=== PATIENT | male | born 1960 | race Caucasian/White ===

== ENCOUNTER 2022-06-20 00:03 | Day surgery (SDC) | payer BC, SELFPAY ==
[2022-04-30 13:46] VITALS: BMI 24.5
[2022-06-04 14:48] VITALS: BMI 24.5
--- NOTE | 2022-06-19 14:08 | PM.HPGS ---
History of Present Illness History of Present Illness Consent: Risks, benefits, and alternatives have been discussed and questions answered. Patient agrees to proceed with procedure. Chief complaint: neoplasm screening Narrative: Suhas Zhou is a 61 year old male Referred for colon cancer screening. Review of Systems Review of Systems: All systems reviewed & are unremarkable except as noted in HPI and below PMFSH Past Medical History Medical History Coronary artery disease Essential hypertension Family history of coronary artery disease occurring prior to 55 years of age H/O: GI bleed Mixed hyperlipidemia Family History Family History Mother Family history of hypercholesterolemia Hypertension Family history of coronary artery disease Father Hypertension Family history of cardiovascular disease Acute myocardial infarction Family history of arthritis Family history of coronary artery disease Sibling Hypertension Social History Social History Smoking status: Never smoker Alcohol intake: current Alcohol use details: one time monthly Living arrangements: with family Spiritual care concerns: No Meds Home Medications and Allergies Home Medications Medication Instructions Recorded Confirmed Type atorvastatin 40 mg tablet 40 mg PO DAILY 12/20/21 06/04/22 History isosorbide mononitrate 30 mg 30 mg PO DAILY 12/20/21 06/04/22 History tablet,extended release 24 hr metoprolol succinate 25 mg 25 mg PO DAILY 12/20/21 06/04/22 History tablet,extended release 24 hr Allergies Allergy/AdvReac Type Severity Reaction Status Date / Time NSAIDS (Non-Steroidal Allergy Other Verified 06/20/22 06:26 Anti-Inflamma Exam Resp: Auscultation: clear to auscultation bilaterally Cardio: Rate: regular rate Rhythm: regular rhythm GI: GI Palp: Yes Soft to palpation and No Tenderness to palpation present (GI) Assessment and Plan Assessment and plan (1) Colon cancer screening: Code(s): Z12.11 - Encounter for screening for malignant neoplasm of colon Status: Acute Assessment and Plan: Colonoscopy with possible biopsy or polypectomy or cautery or injection of substances.
[2022-06-20 06:33] VITALS: BP 137/76; PULSE 72; RESP 17; TEMP 36.4; O2SAT 100
[2022-06-20] MEDS: LACTATED RINGERS 1,000 ML 150 ML IV CONT (06:42)
--- NOTE | 2022-06-20 07:18 | P.PNAN_ITS ---
Anes - Initial Pre Proc Eval Procedure: Operation Date: 06/20/22 07:30 Proposed Procedures p Screening Colonoscopy - Floyd Doe MD Date/Time: 06/20/22 07:18 Surgeon: Floyd Doe MD Pre Op Diagnosis: neoplasm screening Patient Data Age: 61 Gender: M Height: 1.73 m Weight: 72.4 kg Last Vital Signs Temp 36.4 C L 06/20/22 06:33 Pulse 72 06/20/22 06:33 Resp 17 06/20/22 06:33 BP 137/76 06/20/22 06:33 Pulse Ox 100 06/20/22 06:33 O2 Del Method Room Air 06/20/22 06:33 Allergies Allergy/AdvReac Type Severity Reaction Status Date / Time NSAIDS (Non-Steroidal Allergy Other Verified 06/20/22 06:26 Anti-Inflamma Home Medications Medication Instructions Recorded Confirmed Type atorvastatin 40 mg tablet 40 mg PO DAILY 12/20/21 06/04/22 History isosorbide mononitrate 30 mg 30 mg PO DAILY 12/20/21 06/04/22 History tablet,extended release 24 hr metoprolol succinate 25 mg 25 mg PO DAILY 12/20/21 06/04/22 History tablet,extended release 24 hr Patient hx anesthesia problems: none Family hx anesthesia problems: none Results Review: All pre-operative results and documents have been reviewed as part of the pre- operative evaluation. [facility] Past Medical History Medical History Coronary artery disease Essential hypertension Family history of coronary artery disease occurring prior to 55 years of age H/O: GI bleed Mixed hyperlipidemia Family History Family History Mother Family history of hypercholesterolemia Hypertension Family history of coronary artery disease Father Hypertension Family history of cardiovascular disease Acute myocardial infarction Family history of arthritis Family history of coronary artery disease Sibling Hypertension Social History Social History Smoking status: Never smoker Alcohol intake: current Alcohol use details: one time monthly Living arrangements: with family Spiritual care concerns: No Anes - Eval Final PreProcedure Day of Procedure 06/20/22 07:18 Patient weight: normal Heart: regular rate and rhythm Lungs: clear to auscultation Airway: Mallampati scale class 1 Neurological: alert and oriented Last oral intake: >/= 8 hours ASA classification: II Emergent: no Anesthetic plan: proceed Anesthesia type and monitoring: general GIVS and standard monitoring Results Review: All pre-operative results and documents have been reviewed as part of the pre- operative evaluation. Informed Consent: The patient's anesthetic plan and its attendant risks and benefits were discussed with the patient/family/POA. Questions were solicited and answers provided to the satisfaction of the patient/family/POA.
[2022-06-20 07:40] VITALS: BP 107/55; PULSE 59; RESP 16; O2SAT 100
[2022-06-20 07:50] VITALS: BP 107/65; PULSE 55; RESP 18; O2SAT 100
[2022-06-20 08:00] VITALS: BP 104/68; PULSE 50; RESP 19; O2SAT 100
== END 2022-06-20 08:08 | disposition home or self-care (01) ==
PROVIDERS: PCP Family Medicine; Visit Provider Internal Medicine Gastroenterology
PROC: 0DJD8ZZ Inspection of Lower Intestinal Tract, Via Natural or Artificial Opening Endoscopic (ICD-10-PCS; CPT 45378; principal; 2022-06-20 07:30)
DX: Z12.11 Encounter for screening for malignant neoplasm of colon (principal); I25.10 Atherosclerotic heart disease of native coronary artery without angina pectoris; I10 Essential (primary) hypertension; E78.2 Mixed hyperlipidemia
CPT/HCPCS: 45378; J2704; J7120

== ENCOUNTER 2023-03-02 23:45 | Observation (INO) | payer BC, SELFPAY ==
--- NOTE | ~2023-03-02 | XR_ITS ---
EXAMINATION: XR chest 2V DATE: 03/03/2023 00:17 INDICATION: Chest pain TECHNIQUE: PA and lateral views of the chest are obtained. COMPARISON: 03/10/2012 FINDINGS: The lungs are free of acute opacities. No pleural effusion or pneumothorax. The cardiomedia stinal silhouette is normal. The visualized bones and soft tissues are unremarkable. IMPRESSION: 1. No acute cardiopulmonary abnormality. Reviewed, dictated and finalized at location L.
--- NOTE | 2023-03-02 23:47 | ECG_ITS ---
Measurements Intervals [place] Rate: 57 P: 55 MO: 139 QRS: -1 QRSD: 146 T: 64 QT: 434 QTc: 425 Interpretive Statements SINUS BRADYCARDIA LEFT BUNDLE BRANCH BLOCK COMPARED TO ECG 06/07/2019 07:33:14 NO SIGNIFICANT CHANGES Electronically Signed On 03-03-2023 16:01:04 CDT by Dillon Vanessa M.D.
[2023-03-03] VITALS (25 sets, daily range): BP systolic 118–147; BP diastolic 74–84; PULSE 52–121; RESP 12–19; TEMP 36.4–36.7; O2SAT 97–100; BMI 26.0
[2023-03-03 00:36] LABS: Basophils Absolute Auto 0.1 K/mm3 (0.0-0.1); Basophils Percent Auto 0.6 % (0.2-1.2); Eosinophils Absolute Auto 0.3 K/mm3 (0-0.3); Eosinophils Percent Auto 2.9 % (0-4.4); Hematocrit 41.1 % (42.0-52.0); Hemoglobin 13.8 g/dL (14.0-18.0); Immature Granulocyte Absolute 0.02 K/mm3 (0.00-0.031); Immature Granulocyte Percent A 0.2 % (0-0.5); Lymphocytes Absolute Auto 2.46 K/mm3 (0.9-3.2); Lymphocytes Percent Auto 28.7 % (18.3-44.2); Mean Corpuscular HGB Conc 33.6 g/dl (32-36); Mean Corpuscular Hemoglobin 30.8 pg (26-34); Mean Corpuscular Volume 91.7 fl (80-100); Mean Platelet Volume 9.7 fl (7.4-10.4); Monocytes Absolute Auto 0.7 K/mm3 (0.1-0.6); Monocytes Percent Auto 8.6 % (2.6-8.5); Neutrophils Absolute Auto 5.1 K/mm3 (1.3-6.7); Platelet Count Result 195 k/mm3 (150-375); Red Blood Count 4.48 M/mm3 (4.6-6.20); White Blood Count 8.6 K/mm3 (4.5-10.0)
[2023-03-03 00:46] LABS: Alanine Aminotransferase 20 U/L (6-50); Albumin Level 4.3 g/dL (3.5-5.1); Alkaline Phosphatase 78 U/L (38-126); Anion Gap 5 mmol/L (8-16); Aspartate Amino Transferase 26 U/L (17-59); Bilirubin,Total 0.6 mg/dL (0.2-1.3); Blood Urea Nitrogen 18 mg/dL (9-20); Calcium 8.7 mg/dL (8.4-10.2); Carbon Dioxide 30 mmol/L (22-30); Chloride 103 mmol/L (98-107); Estimated CRCL calculation 65 ml/min; Estimated Glomerular Filt Rate > 60; Glucose 109 mg/dL (65-110); Lipase 162 U/L (23-300); Potassium 3.8 mmol/L (3.4-5.0); Sodium 138 mmol/L (137-145)
[2023-03-03 00:50] LABS: Prothrombin Time 13.2 Seconds (11.1-14.7)
[2023-03-03 00:57] LABS: Troponin I < 0.012 ng/mL (0.000-0.034)
[2023-03-03 03:04] LABS: Troponin I < 0.012 ng/mL (0.000-0.034)
--- NOTE | 2023-03-03 03:13 | ECG_ITS ---
Measurements Intervals [place] Rate: 57 P: 49 OK: 143 QRS: -10 QRSD: 134 T: 50 QT: 436 QTc: 425 Interpretive Statements SINUS BRADYCARDIA LEFT BUNDLE BRANCH BLOCK COMPARED TO ECG 03/02/2023 23:52:55 NO SIGNIFICANT CHANGES Electronically Signed On 03-03-2023 16:02:33 CDT by Dillon Vanessa M.D.
--- NOTE | 2023-03-03 03:34 | ECG_ITS ---
Measurements Intervals [place] Rate: 62 P: 47 MO: 141 QRS: -10 QRSD: 146 T: 60 QT: 438 QTc: 446 Interpretive Statements SINUS RHYTHM LEFT BUNDLE BRANCH BLOCK [120+ ms QRS DURATION, 80+ ms Q/S IN V1/V2, 85+ ms R IN I/aVL/V5/V6] COMPARED TO ECG 03/03/2023 03:17:18 NO SIGNIFICANT CHANGES Electronically Signed On 03-03-2023 16:02:49 CDT by Dillon Vanessa M.D.
--- NOTE | 2023-03-03 03:38 | ED.GENADULT ---
HPI - General Adult General Chief complaint: Chest Pain Stated complaint: chest pain Time Seen by Provider: 03/03/23 03:38 History of Present Illness HPI narrative: Patient 62-year-old gentleman who presents the emergency department with chief complaint of chest pain. Patient reports that he has prior history of cardiac disease and has an underlying left bundle branch block patient reports he been seen by cardiology at [place] has had a cardiac cath around 2014 but did not have any blockages that required a stent placement. Patient reports he had been on Imdur and also Plavix but those have been discontinued over the last several years patient reports that the pain is a sharp and pressure feeling in the left side of his chest patient reports it is nonradiating the patient reports that it lasts for just a few seconds when it comes on has had several episodes throughout the night around 11 PM he did get somewhat short of breath when the episode happened and felt as though he got very hot without episode. Related Data Home Medications Medication Instructions Recorded Confirmed atorvastatin 40 mg tablet 40 mg PO DAILY 12/20/21 06/04/22 isosorbide mononitrate 30 mg 30 mg PO DAILY 12/20/21 06/04/22 tablet,extended release 24 hr metoprolol succinate 25 mg 25 mg PO DAILY 12/20/21 06/04/22 tablet,extended release 24 hr Allergies Allergy/AdvReac Type Severity Reaction Status Date / Time NSAIDS (Non-Steroidal Allergy Other Verified 06/20/22 06:26 Anti-Inflamma Review of Systems Review of Systems: A 10 system review of systems was completed on the patient and is negative except for what is stated in the HPI. Nursing and ancillary documentation was reviewed. [facility] Past Medical History Medical History Coronary artery disease Essential hypertension Family history of coronary artery disease occurring prior to 55 years of age H/O: GI bleed Mixed hyperlipidemia Family History Family History Mother Family history of hypercholesterolemia Hypertension Family history of coronary artery disease Father Hypertension Family history of cardiovascular disease Acute myocardial infarction Family history of arthritis Family history of coronary artery disease Sibling Hypertension Social History Social History Smoking status: Never smoker Alcohol intake: current Alcohol use details: one time monthly Living arrangements: with family Spiritual care concerns: No Exam Narrative: GENERAL: Well-appearing, well-nourished, and in no acute distress. HEAD: Normocephalic, atraumatic. EYES: PERRLA and EOMI. ENT: Nares clear, no rhinorrhea or epistaxis. Mucous membranes moist. NECK: Supple. CHEST: Clear to auscultation. No respiratory distress. HEART: Regular rate and rhythm. No murmur heard. Normal peripheral pulses. ABDOMEN: Soft, nontender, nondistended, normal active bowel sounds. EXTREMITIES: Normal range of motion. No edema. SKIN: Warm, dry, no rash. NEURO: No focal deficits. Alert and oriented x3. PSYCH: Normal mood and affect. Course Vital Signs Vital signs: Vital Signs Temperature 36.4 C 03/03/23 00:08 Pulse Rate 70 03/03/23 00:08 Respiratory Rate 18 03/03/23 00:08 Blood Pressure 147/83 H 03/03/23 00:08 Pulse Oximetry 100 03/03/23 00:08 Oxygen Delivery Room Air 03/03/23 00:08 Temperature 36.4 C 03/03/23 00:08 Pulse Rate 70 03/03/23 00:08 Respiratory Rate 18 03/03/23 00:08 Blood Pressure 147/83 H 03/03/23 00:08 Pulse Oximetry 100 03/03/23 00:08 Oxygen Delivery Room Air 03/03/23 00:08 Medical Decision Making [facility] Narrative Medical decision making narrative: Differential diagnosis includes ACS, unstable angina, NSTEMI, noncardiac chest pain. Initial EKG showed left
[2023-03-03 06:04] LABS: Troponin I < 0.012 ng/mL (0.000-0.034)
--- NOTE | 2023-03-03 06:31 | ADMIMU ---
This patient, Suhas Zhou, was admitted to IMU status, and placed in Intensive Care Unit-2. Patient/family oriented to hospital policies and general routines including ID bracelet, bed and alarms, visiting hours, pain management, procedures, bathroom and other care routines, personal items, smoking policy, room service/diet, and visiting hours. Valuables list has been completed. Information on how to activate the Rapid Response Team has been discussed. Patient/Family are encouraged to report perceived risks to care and to ask questions if they do not understand what they are told or what they should do.
--- NOTE | 2023-03-03 10:20 | PM.IMHP ---
H&P: HPI History of Present Illness Date/Time: 03/03/23 10:20 Chief Complaint: chest pain Review of Systems Review of Systems: 12 point review of systems was assessed and was negative except as noted in the HPI [facility] Past Medical History Medical History Coronary artery disease Essential hypertension Family history of coronary artery disease occurring prior to 55 years of age H/O: GI bleed Mixed hyperlipidemia Family History Family History Mother Family history of hypercholesterolemia Hypertension Family history of coronary artery disease Father Hypertension Family history of cardiovascular disease Acute myocardial infarction Family history of arthritis Family history of coronary artery disease Sibling Hypertension Social History Social History Smoking status: Never smoker Alcohol intake: current Alcohol use details: one time monthly Substance use: never Other substance usage details: social alcohol use Lack of Transportation: No Lack of Food: Never True Current Housing: I Have Housing Concerned About Future Housing: No Difficulty Paying Gas/Electric Bills: No Difficulty Paying for Meds: No Currently Unemployed: No Education: Bachelor's Degree Difficulty w/ Childcare or Family Care: No Living arrangements: with family Spiritual care concerns: No Meds Home Medications and Allergies Home Medications Medication Instructions Recorded Confirmed Type atorvastatin 40 mg tablet 40 mg PO HS 12/20/21 03/03/23 History metoprolol succinate 25 mg 25 mg PO 12/20/21 03/03/23 History tablet,extended release 24 hr Allergies Allergy/AdvReac Type Severity Reaction Status Date / Time NSAIDS (Non-Steroidal Allergy Other Verified 06/20/22 06:26 Anti-Inflamma Vital Signs Vital Signs - 24 hr 03/03/23 00:08 03/03/23 05:51 03/03/23 03:31 Temperature 97.6 F Pulse Rate 70 53 L 121 H Respiratory Rate 18 17 19 Blood Pressure 147/83 H 127/74 145/84 H Pulse Oximetry 100 99 100 Oxygen Delivery Room Air 03/03/23 03:46 03/03/23 04:16 03/03/23 04:17 Temperature Pulse Rate 82 114 H 109 H Respiratory Rate 15 15 16 Blood Pressure 132/84 133/82 Pulse Oximetry 100 100 100 Oxygen Delivery 03/03/23 04:31 03/03/23 04:32 03/03/23 04:45 Temperature Pulse Rate 103 H 119 H 107 H Respiratory Rate 13 17 14 Blood Pressure 137/81 Pulse Oximetry 100 100 100 Oxygen Delivery 03/03/23 04:46 03/03/23 05:00 03/03/23 05:01 Temperature Pulse Rate 116 H 52 L 54 L Respiratory Rate 14 13 16 Blood Pressure 131/79 129/78 Pulse Oximetry 99 98 97 Oxygen Delivery 03/03/23 05:15 03/03/23 05:16 03/03/23 05:30 Temperature Pulse Rate 54 L 59 L 52 L Respiratory Rate 13 16 14 Blood Pressure 134/78 Pulse Oximetry 100 100 98 Oxygen Delivery 03/03/23 05:31 03/03/23 05:45 03/03/23 05:46 Temperature Pulse Rate 54 L 56 L 56 L Respiratory Rate 16 15 17 Blood Pressure 125/79 127/74 Pulse Oximetry 98 100 99 Oxygen Delivery 03/03/23 05:47 03/03/23 06:18 03/03/23 06:20 Temperature Pulse Rate 54 L 59 L Respiratory Rate 13 17 Blood Pressure 127/76 Pulse Oximetry 100 100 Oxygen Delivery Room Air 03/03/23 06:47 03/03/23 06:47 03/03/23 08:00 Temperature 98.1 F Pulse Rate 62 62 59 L Respiratory Rate 14 16 Blood Pressure 129/79 129/74 Pulse Oximetry 99 99 Oxygen Delivery 03/03/23 08:00 03/03/23 08:00 03/03/23 10:00 Temperature Pulse Rate 59 L 59 L 58 L Respiratory Rate 16 Blood Pressure Pulse Oximetry 100 Oxygen Delivery Room Air Exam Narrative: General: No acute distress, alert and oriented per baseline HEENT: Atraumatic, normocephalic, mucous membranes moist CV: Regular rate and rhythm, S1, S2 Lungs: Clear
[2023-03-03 11:06] LABS: Glucose Point of Care 107 mg/dl (65-105)
[2023-03-03 11:29] LABS: Hemoglobin A1C 5.2 % (<5.7)
--- NOTE | 2023-03-03 13:51 | PM.CNCAR ---
Assessment and Plan Assessment and plan (1) Chest pain: Code(s): R07.9 - Chest pain, unspecified Status: Acute Assessment and Plan: Presents to the hospital chief complaint of chest pain. He describes the pain as sharp and nonradiating. It has a sudden onset and resolves spontaneously. He has had several episodes of this pain since yesterday. He has not had a recurrence of the pain since early this morning. It is not reproducible. atypical chest pain with no objective evidence of ACS with negative serial troponin levels and EKG with no ST or T-wave changes. His EKG shows sinus rhythm with a left bundle branch which is chronic. His pain may be musculoskeletal in etiology. Recommend follow-up as an outpatient with his primary care doctor within 1 week. 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 No specific cardiac recommendations to make at this time. From a cardiac perspective, he can be discharged home today. History of Present Illness History of Present Illness Consult date/time: 03/03/23 13:51 Requesting physician: Seth Mittal MD Consult reason: chest pain Reason For Visit: Chest Pain Narrative: Mr. Zhou is a 62-year-old male with hypertension and nonobstructive coronary artery disease with most recent left heart catheterization in 2014. He is followed by Dr. Jimenez at [facility]. He has been admitted to the hospital because of a chief complaint of chest pain. Patient states that yesterday he began to experience episodes of a sharp pain in his left lower chest. pain occurred while at rest. He did not have any associated symptoms including shortness of breath, palpitations, nausea, vomiting. He did feel a flush feeling but thinks this may have been anxiety. He does note that over the weekend he did a lot of yard work involving heavy lifting. He has not had any recurrence of this pain since early this morning. Currently, he is resting comfortably in bed and has no complaints. Review of Systems Review of Systems: All systems reviewed & are unremarkable except as noted in HPI and below PMFSH Past Medical History Medical History Coronary artery disease Essential hypertension Family history of coronary artery disease occurring prior to 55 years of age H/O: GI bleed Mixed hyperlipidemia Family History Family History Mother Family history of hypercholesterolemia Hypertension Family history of coronary artery disease Father Hypertension Family history of cardiovascular disease Acute myocardial infarction Family history of arthritis Family history of coronary artery disease Sibling Hypertension Social History Social History Smoking status: Never smoker Alcohol intake: current Alcohol use details: one time monthly Substance use: never Other substance usage details: social alcohol use Lack of Transportation: No Lack of Food: Never True Current Housing: I Have Housing Concerned About Future Housing: No Difficulty Paying Gas/Electric Bills: No Difficulty Paying for Meds: No Currently Unemployed: No Education: Bachelor's Degree Difficulty w/ Childcare or Family Care: No Living arrangements: with family Spiritual care concerns: No Meds Home Medications and Allergies Home Medications Medication Instructions Recorded Confirmed Type atorvastatin 40 mg tablet 40 mg PO HS 12/20/21 03/03/23 History metoprolol succinate 25 mg 25 mg PO HS 12/20/21 03/03/23 History tablet,extended release 24 hr Allergies Allergy/AdvReac Type Severity Reaction Status Date / Time NSAIDS (Non-Steroidal Allergy Other Verified 06/20/22 06:26 Anti-Inflamma Vital Signs Vital Signs - 24 hr 03/03/23 00:08 03/03/23 05:51 03/03/23 03:31
--- NOTE | 2023-03-03 14:28 | PM.SD2 ---
Same Day Admit/Disch: HPI History of Present Illness Chief complaint: Chest Pain Narrative: Suhas Zhou is a 62 year old male with a past medical history significant for heart disease, hypertension, hyperlipidemia is presenting with chest pain. He states the pain was intermittent and happened at both rest and exertion. He described it as a stabbing pain that would last for less than a minute and then go away. He could not seem to reproduce it with palpation or positional changes including deep inspiration. It was nonradiating and there was no diaphoresis, shortness of breath, nausea or abdominal pain. In the ER, his EKG showed left bundle-branch block with a heart rate of 57. Troponins were negative x2. He was admitted with Cardiology consultation due to a heart score of 4. [facility] Past Medical History Medical History Coronary artery disease Essential hypertension Family history of coronary artery disease occurring prior to 55 years of age H/O: GI bleed Mixed hyperlipidemia Family History Family History Mother Family history of hypercholesterolemia Hypertension Family history of coronary artery disease Father Hypertension Family history of cardiovascular disease Acute myocardial infarction Family history of arthritis Family history of coronary artery disease Sibling Hypertension Social History Social History Smoking status: Never smoker Alcohol intake: current Alcohol use details: one time monthly Substance use: never Other substance usage details: social alcohol use Lack of Transportation: No Lack of Food: Never True Current Housing: I Have Housing Concerned About Future Housing: No Difficulty Paying Gas/Electric Bills: No Difficulty Paying for Meds: No Currently Unemployed: No Education: Bachelor's Degree Difficulty w/ Childcare or Family Care: No Living arrangements: with family Spiritual care concerns: No Same Day Admit/Disch: Med Pre-admit Medications Home Medications Medication Instructions Recorded Confirmed Type atorvastatin 40 mg tablet 40 mg PO HS 12/20/21 03/03/23 History metoprolol succinate 25 mg 25 mg PO HS 12/20/21 03/03/23 History tablet,extended release 24 hr Exam Narrative: General: No acute distress, alert and oriented per baseline HEENT: Atraumatic, normocephalic, mucous membranes moist CV: Regular rate and rhythm, S1, S2 Lungs: Clear to auscultation bilaterally, no rales or crackles noted, no wheezes, good air entry Abdomen: Soft, nontender, nondistended Extremities: Normal to inspection Skin: No rashes noted, no lesions or wounds seen Psych: Euthymic, normal affect DS: Data Data Completed and Pending Labs on day of discharge: Labs from last 24 hours 03/03/23 03/03/23 03/03/23 11:01 11:00 05:37 WBC RBC Hgb Hct MCV MCH MCHC RDW Plt Count MPV Immature Gran % (Auto) Neut % (Auto) Lymph % (Auto) [place] % (Auto) Eos % (Auto) Baso % (Auto) Lymph # (Auto) [place] # (Auto) Eos # (Auto) Baso # (Auto) Abs Immat Gran (auto) Absolute Neuts (auto) Absolute Nucleated RBC Nucleated RBC % PT INR APTT Sodium Potassium Chloride Carbon Dioxide Anion Gap BUN Creatinine Estim Creat Clear Calc Estimated GFR Glucose POC Capillary Glucose 107 H Hemoglobin A1c 5.2 Calcium Total Bilirubin AST ALT Alkaline Phosphatase Troponin I < 0.012 Total Protein Albumin Lipase 03/03/23 03/03/23 03/03/23 02:36 00:21 00:21 WBC RBC Hgb Hct MCV MCH MCHC RDW Plt Count MPV Immature Gran % (Auto) Neut % (Auto) Lymph % (Auto) [place] % (Auto) Eos % (Auto) Baso % (Au
== END 2023-03-03 15:00 | disposition home or self-care (01) ==
LOC: ANHED 03-03 05:42 → ANHICU 03-03 14:22
PROVIDERS: Internal Medicine; Admitting Provider Student in an Organized Health Care Education/Training Program; Emergency Provider Emergency Medicine; PCP Family Medicine; Visit Provider Student in an Organized Health Care Education/Training Program
DX: R07.9 Chest pain, unspecified (principal); I44.7 Left bundle-branch block, unspecified; I25.10 Atherosclerotic heart disease of native coronary artery without angina pectoris; R00.1 Bradycardia, unspecified; I11.0 Hypertensive heart disease with heart failure; E78.5 Hyperlipidemia, unspecified; Z82.49 Family history of ischemic heart disease and other diseases of the circulatory system; F10.90 Alcohol use, unspecified, uncomplicated; Z79.899 Other long term (current) drug therapy
CPT/HCPCS: 36415; 71046; 80053; 82948; 83036; 83690; 84484; 85025; 85610; 85730; 93005; 99285; G0378